=== PATIENT | female | born 1965 | race African-American/Black ===

== ENCOUNTER 2018-12-13 13:35 | Emergency (ER) | payer BC ==
[~2018-12-13] VITALS: Ht 162.6 cm; Wt 90.7 kg
[2018-12-13] MEDS ORDERED: METF-442 PO (13:45)
[2018-12-13] MEDS ORDERED: LOSA25TA27 PO (13:45)
[2018-12-13 13:58] LABS: BASOPHILS % (AUTO) 0.6 % (0.0-2.0); EOSINOPHILS # (AUTO) 0.1 K/uL (0.0-0.7); EOSINOPHILS % (AUTO) 2.2 % (0.0-7.0); HEMATOCRIT 37.7 % (31.2-41.9); HEMOGLOBIN 12.6 g/dL (10.9-14.3); LYMPHOCYTES # (AUTO) 1.2 K/uL (20.0-40.0); LYMPHOCYTES % (AUTO) 35.8 % (20.5-51.5); MEAN CORPUSCULAR HEMOGLOBIN 28.8 uug (24.7-32.8); MEAN CORPUSCULAR HGB CONC 33 g/dL (32.3-35.6); MEAN CORPUSCULAR VOLUME 86.3 fL (75.5-95.3); MONOCYTES # (AUTO) 0.3 K/uL (2.0-10.0); MONOCYTES % (AUTO) 9.9 % (0.0-11.0); NEUTROPHILS # (AUTO) 1.7 K/uL (1.8-8.9); NEUTROPHILS % (AUTO) 51.5 % (38.5-71.5); PLATELET COUNT (AUTO) 204 K/uL (179-408); RED BLOOD CELL COUNT(AUTO) 4.37 MIL/uL (3.63-4.92); WHITE BLOOD COUNT (AUTO) 3.4 K/uL (3.8-11.8)
--- NOTE | 2018-12-13 13:58 | NUR ---
PT IS IN ROOM #1B. DR LEVIN EVALUATED THE PT.
[2018-12-13 14:05] LABS: CREATININE 0.9 mg/dL (0.6-1.3); POTASSIUM 3.7 mmol/L (3.5-5.1)
[2018-12-13 14:11] LABS: BILIRUBIN,TOTAL 0.3 mg/dL (0.2-1.0); TOTAL PROTEIN, SERUM 7.5 g/dL (6.4-8.2)
--- NOTE | 2018-12-13 14:50 | NUR ---
PT WAS D/C'd TO HOME AFTER DR LEVIN RE-EVALUATION. D/C INSTRUCTIONS GIVEN TO THE PT.
[2018-12-13 14:51] VITALS: BP 139/77
== END 2018-12-13 14:52 | disposition home or self-care (01) ==
LOC: ER 13:35
DX: E11.65 Type 2 diabetes mellitus with hyperglycemia (principal); I10 Essential (primary) hypertension; Z79.899 Other long term (current) drug therapy
CPT/HCPCS: 36415; 85025; 93005; A4663